=== PATIENT | male | born 1985 | race Caucasian/White ===

== ENCOUNTER 2018-04-15 17:40 | Observation (INO) | payer BC, SELFPAY ==
[2018-04-15] VITALS (14 sets, daily range): BP systolic 97–142; BP diastolic 61–94; PULSE 79–107; RESP 16–18; TEMP 36.6–37.2; O2SAT 92–99; BMI 35.2
--- NOTE | 2018-04-15 18:07 | ED.VISSUMM ---
- ER Visit Summary Date of Service: 04/15/18 Chief Complaint: Right lower quadrant abdominal pain History of Present Illness: The patient is a 32 M right lower quadrant abdominal pain starting after lunch at 1 PM. Pain has been constant dull symptoms 4 out of 10. No nausea vomiting or diarrhea. No urinary symptoms. No past medical history. No abdominal surgeries. Last meal was at 11:30 AM. Pain worse with coughing and laughing. States car wide was not bad. Physical Examination: General: Alert and oriented ?3, no acute distress HEENT: Normocephalic, atraumatic. Moist mucosa membranes Neck: supple, nontender. Cardiovascular: Regular rate and rhythm, no murmurs Respiratory: Normal breath sounds, symmetric, no distress Abdomen: Soft, right lower quadrant tenderness with deep palpation no rebound, nondistended. Negative Rovsing's. Negative obturators. Extremities: Nontender, no edema, pulses intact ?4 Neuro: no focal neurological deficits. Test Results: WBC 13.6. Coags normal. Chemistries normal. Emergency Department Course and Treatment: Patient with focal right lower quadrant tenderness pain with deep palpation. I did initiate workup with CT imagings and labs. Discussed with surgeon, , while patient was starting his oral contrast. Labs are pending. He did come evaluate the patient in the ED, he decided to take the patient to surgery. White count did return at 13.6. Continued IV fluids. Antibiotics requested by surgery of Connor. Patient will be taken to the OR. Treatment Plan: [] Disposition: Admission Impression: 1. Right lower quadrant abdominal pain 2. Clinical appendicitis This note was generated with [employer] dictation software. It may contain incorrect words, spelling, and punctuation that were not noted in review of the chart prior to signing ED Disposition - Plan for ED Patient: Disposition: Acute Care [facility] Chief Complaint: Abd Pain Diagnosis: Right lower quadrant abdominal pain, Clinical appendicitis Referrals: NOT,DEFINED [NON-STAFF] -
[2018-04-15] MEDS: 0.9% Normal Saline 1,000 ML 1000 ML IV (18:25)
[2018-04-15 18:38] LABS: Hematocrit 46.1 % (40-54); Hemoglobin 16.1 g/dl (13.0-16.5); Mean Corp Hgb Conc 34.9 g/gl (32-36); Mean Corpuscular Hgb 30.8 pg (27.0-32.0); Mean Corpuscular Volume 88.1 fL (80-94); Mean Platelet Vol. 9.4 fl (6.2-12.0); Platelet Count 277 K/mm3 (150-450); RBC Distribution Width CV 13.2 % (11.6-14.6); RBC Distribution Width SD 42.5 fl (35.1-43.9); Red Blood Count 5.23 M/mm3 (4.6-6.2); White Blood Count 13.6 K/mm3 (4.4-11.0)
[2018-04-15 18:48] LABS: Anion Gap 9 (5-15); BUN 11 mg/dL (7-18); Calcium,Total 9.2 mg/dL (8.5-10.1); Chloride 103 mmol/L (98-107); Creatinine, Serum 1.22 mg/dL (0.70-1.30); EST Glomerular Filtration Rate 74 mL/min (>60); Est Glom Filt Rate - Afr Amer 89 mL/min (>60); Estimated Creatinine Clearance 65.49 ml/min; Glucose 80 mg/dL (74-106); Potassium 3.8 mmol/L (3.5-5.1); Sodium Level 138 mmol/L (136-145)
[2018-04-15 18:51] LABS: Prothrombin Time (Protime)PT. 13.4 SECONDS (11.7-14.9)
[2018-04-15 18:52] LABS: Partial Thromboplast Time 31.5 Seconds (24.1-36.2)
[2018-04-15 19:07] LABS: Scan Indicated on CBC? Y/N NO
[2018-04-15] MEDS: 0.9% Normal Saline 1,000 ML 150 ML IV (19:16)
[2018-04-15 19:23] LABS: Bacteria 0 SEEN /hpf (None Seen); Mucous, Urine 0 SEEN /hpf (<or=2+); Red Blood Cells-Urine 0 SEEN /hpf (0-5); Squamous Epithelial Cells - UA 0 SEEN /hpf (0-5); White Blood Cells 0 SEEN /hpf (0-5)
[2018-04-15] MEDS: Ciprofloxacin 400 MG/200 ML BAG 200 MG IV (19:28)
[2018-04-15 19:29] LABS: Color, Urine Yellow (Yellow); Glucose, Dipstick Normal (Normal); Ketone-Dipstick Negative (Negative); Leukocyte Esterase-Dipstick Negative /ul (Negative); Nitrite-Dipstick Negative (Negative); Occult Blood-Urine Negative /ul (Negative); Protein-Dipstick Negative (Negative); Specific Gravity, Urine 1.015 (1.002-1.030); Urine Bilirubin Dipstick Negative (Negative); Urine Clarity Clear (Clear); Urine Urobilinogen Normal (Normal)
--- NOTE | 2018-04-15 19:32 | HP.PCM_ITS ---
History of Present Illness Date of Admission: 04/15/18 The patient is a 32 year old M who presented to the [facility] emergency room with 6 hour onset of right lower quadrant pain worsening in character. He has never had a similar illness before. Last food was at 1130 this morning. He just had a liquidy bowel movement. No nausea. No documented fever. His white blood cell count is 13.6 with a hemoglobin 16.1 hematocrit 46.1 and platelet count of 277,000. No differential was obtained. Coags are normal. BUN is 11 and creatinine 1.22. I was asked to see the patient for suspected appendicitis. He denies any history of urinary retention dysuria or kidney stones. He otherwise is generally healthy. He has no primary care physician. Past Medical History Allergies codeine Allergy (Verified 04/15/18 17:42) Rash Penicillins Allergy (Verified 04/15/18 17:42) Swelling Home Medications: Ambulatory Orders Medication Instructions Recorded NK [NK] 04/15/18 Surgical History: no surgical history, - - Dental extraction Smoking Status: Never smoker Alcohol: Rare Review of Systems Constitutional: Denies: Chills, Fever HEENT: Denies: Difficulty Hearing Cardiovascular: Denies: Chest Pain Respiratory: Denies: Cough Gastrointestinal: Reports: Abdominal Pain. Denies: Nausea, Vomiting Genitourinary: Denies: Dysuria Skin: Denies: Dryness Neurological: Denies: Balance problems Psychiatric: Reports: Anxiety Endocrine: Denies: Change in Body Habitus VTE Information - Inpt Only VTE Present on Admission: No - Physical Exam General: Alert, Oriented x3, Cooperative, No apparent distress HEENT: Atraumatic Oral: Moist Mucosa Neck: No JVD, Negative Carotid Bruits Lungs: Clear to auscultation Cardiovascular: Regular rate, Regular Rhythm Abdomen: Hypoactive Bowel Sounds, - - Notable right mid and right lower quadrant tenderness to light palpation with guarding Overweight Extremities: No clubbing, No Calf Tenderness Skin: No rashes Musculoskeletal: No Tenderness to Palpation of Joints or Extremities Lymphatic: No Cervical, Supraclavicular, or Inguinal Adenopathy Neurological: Cranial nerves II-XII grossly intact Psych/Mental Status: Anxious Vital Signs Temp Pulse Resp BP Pulse Ox 99.0 F 79 16 142/67 H 97 04/15/18 17:41 04/15/18 17:41 04/15/18 17:41 04/15/18 17:41 04/15/18 17:41 Oxygen Delivery Method Room Air Weight: 186 lb 3.2 oz Body Mass Index (BMI) 35.2 Laboratory Tests Past 24 Hrs 04/15/18 04/15/18 04/15/18 18:18 18:18 18:18 WBC 13.6 H RBC 5.23 Hgb 16.1 Hct 46.1 MCV 88.1 MCH 30.8 MCHC 34.9 RDW 13.2 RDW Differential 42.5 Plt Count 277 MPV 9.4 PT 13.4 INR 1.0 APTT 31.5 Sodium 138 Potassium 3.8 Chloride 103 Carbon Dioxide 26.0 Anion Gap 9 BUN 11 Creatinine 1.22 Estim Creat Clear Calc 65.49 Est GFR (MDRD) Af Amer 89 Est GFR (MDRD) Non-Af 74 BUN/Creatinine Ratio 9.0 L Glucose 80 Calcium 9.2 Urine Color Urine Clarity Urine pH Ur Specific [place] Urine Protein Urine Glucose (UA) Urine Ketones Urine Occult Blood Urine Nitrite Urine Bilirubin Urine Urobilinogen Ur Leukocyte Esterase Urine RBC Urine WBC Ur Squamous Epith Cells Urine Bacteria Urine Mucus 04/15/18 18:55 WBC RBC Hgb Hct MCV MCH MCHC RDW RDW Differential Plt Count MPV PT INR APTT Sodium Potassium Chloride Carbon Dioxide Anion Gap BUN Creatinine Estim Creat Clear Calc Est GFR (MDRD) Af Amer Est GFR (MDRD) Non-Af BUN/Creatinine Ratio Glucose Calcium Urine Color Pending Urine Clarity Pending Urine pH Pending Ur Specific [place] Pending Urine Protein Pending Urine Glucose (UA) Pending Urine Ketones Pending Urine Occult Blood Pending Urine Nitrite Pending Urine Bilirubin Pending Urine Urobilinogen Pending Ur Leukocyte Esterase Pending Urine RBC Pending Urine WBC Pending Ur Squamous Epith Cells Pending Urine Bacteria Pending Urine Mucus Pending Assessment/Plan It is quite anxious. He himself believes that he has acute appendicitis. States the pain is worsening. Clinical exam and laboratories consistent with the same. The patient's mother is present. She has had a previous history of a perforated appendicitis was quite sick. I have discussed treatment options. We discussed proceeding with a CT scan although clinically I believe the patient has all the signs and symptoms consistent with acute appendicitis. I have offered him the option of a laparoscopic appendectomy with possible conversion to an open approach if indicated. He is aware the technique, benefits, risks, alternatives. He would like to proceed with definitive surgery at this time As noted he has no primary care physician Darrius Pal M.D., F.A.C.S.
--- NOTE | 2018-04-15 19:34 | DCINST_ITS ---
Discharge Diet: Light diet - advance as tolerated - if you have questions about your diet instructions, please talk to you doctor. Discharge Activity: May Not Drive - for 1 week or while taking narcotic pain medicine. May shower in (days): 1 Lifting Restrictions: 10 pounds Call your doctor if your incision/area has: Continuous Slow Oozing, Sudden Increased Bleeding, Increased Pain/ Swelling, Increased Redness, Foul Smelling Discharge Call your doctor if you observe: Fever of 101 or Higher Suture Line Care: Avoid Pulling/Pushing, Avoid Pinching/Bending Additional Dressing/Incision Instructions:: Change or remove dressing in 4 days. Leave steri-strips in place for 1 week. Allergies/Adverse Reactions: Allergies codeine Allergy (Verified 04/15/18 17:42) Rash Penicillins Allergy (Verified 04/15/18 17:42) Swelling Medications to take at Discharge NK [NK] 04/15/18 Primary Care Physician: NOT,DEFINED [NON-STAFF] - Test Results: Test results from this visit will be discussed in further detail at your follow- up appointment, if applicable. Please Follow Up With: Darrius Pal MD - [phone] When: Call to make an appointment to be seen in about 7 days.
[2018-04-15] MEDS: Bupivacaine Mpf 0.5% 30 ML VIAL (21:20)
--- NOTE | 2018-04-15 21:24 | PCM.OPRPT ---
Problem List (1) Acute appendicitis Status: Acute Qualifiers: Acute appendicitis type: unspecified acute appendicitis type Qualified Code(s): K35.80 - Unspecified acute appendicitis Report of Operation Date of Procedure: 04/15/18 Pre-Operative Diagnosis: Acute appendicitis Post-Operative Diagnosis: Acute suppurative appendicitis Surgery/Procedure Performed:: Laparoscopic appendectomy Description of Surgical Findings:: Timeout informed consent was obtained. 32-year-old gent was taken the operating place upon the table. He had ciprofloxacin and metronidazole preoperatively because of penicillin allergy. The abdomen was sterilely prepped draped. 0.5% Marcaine was used as local anesthetic. Throughout the procedure 25 cc was used. Local was instilled. An infraumbilical midline incision was created. Holding sutures of 0 Vicryl placed. A varies needle was inserted. Saline drop test performed. The abdomen was insufflated with CO2 to pressure of 10 ventricular pressure. I try to place a 12 minute trocar at the umbilicus but the patient was rather fatty and so I then in the epigastric area using a 5 mm port I gained to direct visualize accessed using a straight 5 mm scope. I then was able to advance the umbilical port completely within the abdomen. I placed a five-minute ports suprapubically. Patient had a very fat filled omentum. I move that all for the appendix was not found acute separative appendicitis. There is no perforation. There is no cloudy fluid. I was able to make a window in the mesoappendix flush with the cecum. There was some induration here so I elected to use a 45 mm [place] with green load. The appendix and partial cecum was transected. That was hemostasis at nicely intact. I used a blue load to transect the mesoappendix. I used 1 Hem-o-whitley clip to assure hemostasis. The appendix was then placed in retrieval bag and exited the umbilicus. The right lower quadrant was inspected. Both staple lines carefully inspected. Both staple lines nicely intact was hemostatic both appear to be nice and intact. Trochars were removed under visualization. The abdomen was allowed to deflate of CO2. The fascia at the umbilicus approximated with interrupted 2-0 Vicryl figure 8 suture. Skin edges proximate interrupted 4 Monocryl subdermal stitches. Steri-Strips and Telfa and OpSite dressings applied. Sponge and instrument and needle counts were reported the surgeon be correct. Specimens appendix. Drains none. Blood loss minimal. He was taken to the recovery area in satisfactory condition without apparent complication. Darrius Pal M.D., F.A.C.S. Type of Anesthesia:: General Anesthesiologist: [employer]
[2018-04-15] MEDS: Ipratropium/Albuterol Sulfate 3 ML AMPUL.NEB INHALATION (22:29)
--- NOTE | 2018-04-15 22:35 | SUR.PHASEI ---
PT PULSE OX LEVEL TO 88% OCCAS. ON NC OF 3L NOW AFTER DUONEB TX. IS GIVEN AND EXPLAINED BEDSIDE PER NURSE.
--- NOTE | 2018-04-15 22:40 | RAD_ITS ---
STUDY: X-RAY CHEST REASON FOR EXAM: Male, 32 years old. Desaturation postop. TECHNIQUE: Portable chest. COMPARISON: None. FINDINGS: The lungs are clear and expanded. There is no demonstrated pleural abnormality. Normal size heart. Normal mediastinum and eleanor. Normal visualized pulmonary arteries. Normal visualized aortic arch and descending thoracic aorta. Normal visualized thoracic spine. Normal visualized ribs, clavicles, and shoulders. There is no demonstrated abnormality of the visualized soft tissue structures of the upper abdomen. RAD/Chest 1 View (Portable) IMPRESSION: Normal x-ray examination of the chest. Electronically Signed: Marii Navarro MD at 23:24 EDT Tel , Service support ,
[2018-04-15] MEDS: Lactated Ringers 1,000 ML 30 ML IV (23:34)
--- NOTE | 2018-04-16 | APP_PTH ---
PATIENT: CHARISSA MCDONALD LOC: MS3 U#:[id number] AGE/SX: 32/M ROOM: FL320 RE04/15/[address]: Dr. Darrius Pal MD : 1985 BED: 1 DIS: 04/16/2018 SPEC #: [id number] RECD: 04/16/18 12:44 STATUS: DAYSI REQ #: [id number] NATALIA: 04/16/18 00:[address]: Darrius Pal DEPT: SURGICAL PATHOLOGY RECD BY: Jonathan Maldonado ENTERED: 04/16/18 12:45 SP TYPE: APPENDIX OT DR: Vera Primary Care Phys Tissues: Appendix, NOS Procedures: Surgery Specimen Level III HEADER OPERATION: Laparoscopic appendectomy PRE-OP DIAGNOSIS: Acute appendicitis TISSUE SUBMITTED: Appendix MICROSCOPIC DIAGNOSIS Appendix: Acute appendicitis and periappendicitis. SJ:karri 04/17/18 MICROSCOPIC DESCRIPTION Slides are reviewed. GROSS DESCRIPTION Received is one container labeled with the patient's name and designated appendix. The specimen consists of an appendix measuring 6 cm in length and up to 1 cm in diameter. The attached periappendiceal adipose tissue measures up to 3 cm in width. The serosa is congested. No obvious perforation is identified. The mucosa is congested. No fecalith is identified. Janitor Caretaker sections are submitted in one cassette. / SJ:rg 04/16/18 TC:2 CPT: 06644
[2018-04-16 00:03] VITALS: BP 111/67; PULSE 93; RESP 18; TEMP 37.2; O2SAT 95
--- NOTE | 2018-04-16 00:15 | NURSING ---
Pt up to room from PACU. Lungs clear, NC continued @ 3L. IS education given and pt demonstrated. PT c/o nausea and pain. PRN medication given. KPAD initiated. Pt denies need to urinate at this time, stated he voided in PACU.
[2018-04-16] MEDS: Morphine 2 MG/ML Syringe IV ×2 (00:19→12:02)
[2018-04-16] MEDS: Ondansetron 4 MG/2 ML Vial IV (00:20)
[2018-04-16 02:03] VITALS: BP 105/56; PULSE 99; RESP 18; TEMP 37.3; O2SAT 96
[2018-04-16 04:03] VITALS: BP 112/64; PULSE 102; RESP 18; TEMP 37.3; O2SAT 96
--- NOTE | 2018-04-16 04:49 | NURSING ---
Pt ambulating in [place].
--- NOTE | 2018-04-16 06:09 | PCM.PN.SRG ---
Patient Problems: Active and Suspected Problems Right lower quadrant abdominal pain (Acute) Acute appendicitis (Acute) Subjective: No complaints Some urinary retention. Still anxious. Feels much less pain than yesterday - Physical Exam General: Cooperative, No apparent distress Lungs: Clear to auscultation Abdomen: Soft, Bowel Sounds Not Present, Tender, - - dressings clean Vital Signs Temp Pulse Resp BP Pulse Ox 99.1 F 102 H 18 112/64 96 04/16/18 04:03 04/16/18 04:03 04/16/18 04:03 04/16/18 04:03 04/16/18 04:03 Oxygen Flow Rate (L/min) 2 Oxygen Delivery Method Room Air Weight: 186 lb 3.2 oz Body Mass Index (BMI) 35.2 Intake and Output for Last 24 Hours 04/14/18 04/15/18 04/16/18 23:59 23:59 23:59 Intake Total 1600 / 1600 0 / 0 Balance 1600 / 1600 0 / 0 Medical Necessity - Tobacco Use Smoking Status: Never smoker Assessment/Plan All Active Problems Right lower quadrant abdominal pain (Acute) Acute appendicitis (Acute) Hopeful discharge mid day
[2018-04-16 06:57] VITALS: O2SAT 96
[2018-04-16 09:16] VITALS: BP 116/69; PULSE 96; RESP 16; TEMP 36.9; O2SAT 95
[2018-04-16 12:02] VITALS: BP 118/76; PULSE 89; RESP 18; TEMP 36.7; O2SAT 98
[2018-04-16] MEDS: 0.9% NaCl Peripheral Flush Adult/Peds IV (12:03)
[2018-04-16] MEDS: Acetaminophen 325 MG Tablet 650 MG PO (12:03)
== END 2018-04-16 12:45 | disposition home or self-care (01) ==
LOC: ED 18:33 → MS3 19:29
PROVIDERS: Admitting Provider Surgery; Emergency Provider Emergency Medicine; Visit Provider Surgery
PROC: 0DTJ4ZZ Resection of Appendix, Percutaneous Endoscopic Approach (ICD-10-PCS; CPT 44970; principal; 2018-04-15 19:45)
DX: K35.80 Unspecified acute appendicitis (principal)
CPT/HCPCS: 44970; 71045; 80048; 81001; 85027; 85610; 85730; 88304; 94640; 96361; 96374; 96375; 96376; 99218; 99282; J7030; J7120; A4216; G0378; J0744; J2405

== ENCOUNTER → 2021-06-22 16:48 | Outpatient (CLI) | payer BC, SELFPAY ==
--- NOTE | 2021-06-22 16:55 | RAD_ITS ---
STUDY: X-RAY EXAMINATION: SCOLIOSIS SERIES REASON FOR EXAM: Male, 35 years old. Scoliosis. TECHNIQUE: 3 view(s) of the thoracolumbar spine were obtained in the upright standing position. COMPARISON: None. FINDINGS: There is a 9 degree dextroscoliosis of the upper thoracic spine with the apex of the convexity at T5. There is a 14.4 degree levoscoliosis of the thoracic spine with the apex of the convexity at the T9 level. There is a 20.9 degree dextroscoliosis of the thoracolumbar spine with the apex of the convexity at the L1 level. Normal thoracic vertebrae and endplates. Normal disc space heights of the thoracic spine. Normal lumbar vertebrae and endplates. Normal disc space heights of the lumbar spine. The soft tissue structures are unremarkable. RAD/Scoliosis 1 view IMPRESSION: Scoliosis of the thoracolumbar spine, as above. Electronically Signed: Aj Harper DO at 23:28 EST Tel [phone], Service support ,
== END ==
PROVIDERS: PCP Student in an Organized Health Care Education/Training Program; Referring Provider Anesthesiology; Visit Provider Anesthesiology
DX: M41.25 Other idiopathic scoliosis, thoracolumbar region (principal)
CPT/HCPCS: 72081

== ENCOUNTER → 2023-07-17 | Outpatient (CLI) | payer BC, SELFPAY ==
[2023-07-17] MEDS: Methacholine Chloride 18 ml neb kit INHALATION (06:57)
--- NOTE | 2023-07-17 12:58 | BRONCHALL ---
Bronchoprovocation Challenge Bronchoprovocation Challenge Bronchoprovocation Challenge: INTRODUCTION: The patient is a 37-year-old male who presents for a bronchoprovocation challenge secondary to a diagnosis of cough. Respiratory therapy reported good patient effort and reproducible results. INTERPRETATION: Initial spirometry did not show any evidence of a large airways obstructive ventilatory defect with preserved airflows throughout. The patient was then given progressively increasing doses of methacholine in a standardized fashion. At the highest level of methacholine, the patient did experience a 23% decline in FEV1. The PD 20 FEV1 was noted to be 473 ug. IMPRESSION: Technically positive test with a PD 20 FEV1 that would be considered in the normal range.
== END | disposition home or self-care (01) ==
LOC: PSN 06:40
PROVIDERS: PCP Student in an Organized Health Care Education/Training Program
DX: R05.2 Subacute cough (principal)
CPT/HCPCS: 94070; 95070